=== PATIENT | female | born 1960 | race Two or more races ===

== ENCOUNTER 2024-02-18 14:05 | Emergency (ER) | payer MEDICAID, SELFPAY ==
[2024-02-18 14:36] VITALS: BP 110/66; PULSE 77; RESP 18; TEMP 36.7; O2SAT 95; BMI 32.0
--- NOTE | 2024-02-18 15:05 | EDNOTE_ITS ---
ED Fall Injury RME/HPI General Chief Complaint: Fall Stated Complaint: tripped and fell bilat knee pain Time Seen by Provider: 02/18/24 14:30 Arrival date/time: 02/18/24 14:05 Limitations: no limitations RME / HPI RME / HPI Narrative: 63-year-old female presents to the emergency department complaining of bilateral knee pain with left much worse than right after ground-level fall. 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 She states she came down hard on her left knee now with swelling. No other injuries, no head strike, no loss of consciousness. No neck pain or focal neurologic complaints. Patient denies symptoms prior to the fall. Related Data Previous Rx's ?Medication ?Instructions ?Recorded acetaminophen 500 mg tablet 1,000 mg (2 x 500 mg) PO Q6H PRN 02/18/24 pain #20 tabs ibuprofen 600 mg tablet 600 mg PO Q6H PRN pain 5 days #20 02/18/24 tabs Allergies Allergy/AdvReac Type Severity Reaction Status Date / Time levofloxacin Allergy Intermediate ITCHING, Verified 06/20/09 07:56 RASH Review of Systems Review of Systems Narrative Review of Systems: GEN: No fever, no chills, no weight loss EYES: No discharge, no visual changes, no pain HEENT: No ear pain, no congestion, no sore throat PULM: No shortness of breath, no cough, no congestion CV: No chest pain, no dyspnea on exertion, no palpitations GI: No nausea, no vomiting, no diarrhea, no pain, no constipation : No frequency, no urgency, no dysuria MUSC/SKEL: +BL knee pain L>R, no back pain SKIN: No rash PSYCH: No hallucinations, no depression HEME/LYMPH: No easy bleeding or bruising tendencies NEURO: No weakness, no headache Past Medical History Social History SMOKING STATUS: Never smoker ED Exam General Limitations: Present no limitations General appearance: Present alert and in no apparent distress Head Head exam: Present atraumatic, normocephalic and normal inspection Eye Eye exam: Present normal appearance, PERRL and EOMI ENT ENT exam: Present normal exam, normal oropharynx and mucous membranes moist Neck Neck exam: Present normal inspection, full ROM and trachea midline Chest Chest inspection: Present normal inspection and symmetric chest wall rise Respiratory Respiratory exam: Present normal lung sounds bilaterally Cardiovascular Cardiovascular exam: Present regular rate, normal rhythm and normal heart sounds Abdominal Exam Abdominal exam: Present soft and normal bowel sounds Extremities Exam Extremities exam: Present full ROM and other (On exam the patient has left generalized knee swelling with what seems to be an effusion. There is no ov erlying erythema. There is some tenderness to palpation. Patient is able to extend out the knee joint on the left with some difficulty. There is no tenderness palpation of the right knee gener) Back Exam Back exam: Present normal inspection and full ROM Neurological Exam Neurological exam: Present alert, oriented X3 and CN II-XII intact Psychiatric Psychiatric exam: Present normal affect and normal mood Skin Skin exam: Present warm, dry, intact and normal color Course Quality Measures none Orders Category Date Time Status Apply knee immobilizer NOW Care 02/18/24 15:51 Completed Crutches .NOW Care 02/18/24 15:51 Completed Discharge Routine Discharge 02/18/24 15:51 Active XR knee LT 3V Stat Exams 02/18/24 15:04 Completed HYDROcodone*/APAP 5/325 [Davis 5/325] Med 02/18/24 15:04 Discontinued 1 tab PO X1 ONE Reevaluation(s) Reevaluation #1: Plan is to get plain films of the left knee given Davis. Time: 15:00 Reevaluation #2: Patient remains clinically stable throughout the emergency department visit. We reviewed all the results, analysis, and treatment plans. Patient is amenable to discharge. Strict return precautions were outlined. Patient was discharged in stable condition. Time: 15:45 Vital Signs Vital signs: Vital Signs Temperature 98.1 F 02/18/24 14:36 Pulse Rate 77 02/18/24 14:36 Respiratory Rate 18 02/18/24 14:36 Blood Pressure 110/66 02/18/24 14:36 Pulse Oximetry (%) 95 02/18/24 14:36 Oxygen Delivery Method Room Air 02/18/24 14:36 Pulse ox is 95% on room air which is adequate. Fall MDM Narrative MDM Narrative:: Nely Clarke am scribing for and in the presence of Dr. Torres. Patient data External records reviewed:: [facility] previous records Clinical information provided by:: patient Social determinants that could affect healthcare access:: none Patient has the following chronic illnesses:: None reported How is presenting disease/condition affected by chronic disease/condition?: no chronic disease Evaluation data The following diagnostics were reviewed and interpreted by me:: radiology exa m(s) Lab and/or radiology exams considered but not ordered:: None Interpretation Summary: Ordering Physician: Darryl Torres MD Date of Service: 02/18/24 Procedure(s): XR knee LT 3V Accession Number(s): [id number] cc: Kody Foy MD; Darryl Torres MD; Alesha Wade PA-C~ Examination: Knee, left , 3 views Technique: Knee AP, lateral, oblique 3 views Date and time of exam: September 18, 2023 1524 hrs. Indications: Patient fell today with injury to the knee, knee pain. Findings: No acute fracture Large knee effusion No dislocation Impression: No acute fracture Large knee effusion, seen with internal derangement of the knee Dictated By: Kody Foy MD Signed By: <Electronically signed by Kody Foy MD in OV> 02/18/24 1607 Medications / Prescriptions Medications or Prescriptions considered but not ordered:: None Medication administrations:: Medication Administration History Discontinued Medications Hydrocodone Bitart/Acetaminophen (Hydrocodone/Apap 5/325 Tablet) 1 tab PO X1 ONE Stop: 02/18/24 15:05 Last Admin: 02/18/24 15:08 Dose: 1 tab Documented By: OA See above Consultations Consultation(s) initiated? (list below): No Diagnosis Fall Differential Diagnosis: other (knee dislocation, knee effusion, knee contusion) Most likely diagnosis given after review of the tests above:: Knee contusion Admission Indicated Admission indicated?: not indicated Admission Request Was there a request for admission?: No Disposition Plan Disposition Plan: Discharge Discharge Attestation Discharge Attestation: The patient and all family members were given an opportunity to ask questions and understood the discharge instructions. Discharge instructions specifically effects, indications for sooner follow up or return to the emergency department, and the expected course of current diagnosis. Patient condition: Stable Discharge Plan Plan Patient Disposition: HOME (Self Care) Disposition Comment: Stable for discharge Patient condition on transfer: Stable Prescriptions/Referrals Prescriptions/Med Rec: New ibuprofen 600 mg tablet 600 mg PO Q6H PRN (Reason: pain) 5 Days Qty: 20 0RF acetaminophen 500 mg tablet 1,000 mg PO Q6H PRN (Reason: pain) Qty: 20 0RF Referrals: Alesha Wade PA-C [Primary Care Provider] - In 1 week Problem List Clinical Impression: Contusion of knee Patient/Caregiver Discharge Instructions Discharge Activity: activity as tolerated Education Materials: Bruises (Contusions), ED Soft Tissue Contusion, ED Contusion, Lower Extremity Additional Instructions: Return to the emergency department for any worsening or any further medical problems Please follow-up with your primary care doctor within the next several days Print Language: Tamazight Stand Alone Forms: [place] Award Info., Work/School Release, Patient Portal Info Letter
[2024-02-18] MEDS: HYDROcodone/APAP 5/325 TABLET 1 TAB PO (15:08)
== END 2024-02-18 17:12 | disposition home or self-care (01) ==
PROVIDERS: Emergency Provider Emergency Medicine; PCP Physician Assistant
DX: S80.02XA Contusion of left knee, initial encounter (principal); W01.0XXA Fall on same level from slipping, tripping and stumbling without subsequent striking against object, initial encounter
CPT/HCPCS: 73562; 99283; A9270